=== PATIENT | male | born 1990 | race Caucasian/White ===

== ENCOUNTER 2021-03-30 13:12 | Emergency (ER) | payer OTHER ==
[2021-03-30 15:07] LABS: BASOPHIL 0.8 % (0-2); EOSINOPHIL 3.5 % (0-5); HCT 44.4 % (42.0-52.0); HGB 15.5 g/dl (13.2-18.0); LYMPHOCYTE 39.2 % (15-48); MCHC 34.9 g/dL (32.0-36.0); MCV 80.1 fL (78.0-100.0); MONOCYTE 6.6 % (0-12); MPV 10.7 fL (6.0-9.5); NEUTROPHIL 49.2 % (41-80); NRBC 0; PLT 475 K/uL (150-400); RBC 5.54 M/uL (4.70-6.00); RDW 12.8 % (11.5-14.0); WBC 18.3 K/uL (4.0-10.5)
[2021-03-30 15:25] LABS: ALBUMIN 3.8 g/dL (3.4-5.0); BILIRUBIN - TOTAL 0.4 mg/dL (0.2-1.0); BUN/CREAT RATIO (CALC) 20.5 RATIO; CREATININE 0.78 mg/dL (0.67-1.17); GLOBULIN (CALCULATION) 3.1 g/dL; POTASSIUM 3.4 mmol/L (3.5-5.1); TOTAL PROTEIN 6.9 g/dL (6.4-8.2)
[2021-03-30 15:53] LABS: BILIRUBIN NEGATIVE (NEGATIVE); BLOOD NEGATIVE Ery/uL (NEGATIVE); CLARITY CLEAR (CLEAR); COLOR YELLOW (YELLOW); GLUCOSE (U) NORMAL (NORMAL); LEUKOCYTES NEGATIVE Leu/uL (NEGATIVE); NITRITE NEGATIVE (NEGATIVE); PROTEIN NEGATIVE (NEGATIVE)
[2021-03-30] MEDS ORDERED: BACTRIM DS TAB1 EACH PO (18:04)
[2021-03-30] MEDS ORDERED: FLOMAX0.4 MG PO (18:04)
[2021-03-30] MEDS ORDERED: NAPROXEN500 MG PO (18:06)
== END 2021-03-30 18:28 | disposition home or self-care (01) ==
LOC: FER 13:12
PROVIDERS: Internal Medicine
DX: N50.82 Scrotal pain (principal); F17.210 Nicotine dependence, cigarettes, uncomplicated; Z87.442 Personal history of urinary calculi; Z90.49 Acquired absence of other specified parts of digestive tract; Z88.1 Allergy status to other antibiotic agents
CPT/HCPCS: 36415; 76870; 80053; 81003; 83690; 84145; 85025; Q9967